=== PATIENT | female | born 1975 | race Caucasian/White ===

== ENCOUNTER 2017-08-07 17:32 | Emergency (ER) | payer MEDICAID ==
[~2017-08-07] VITALS: Ht 152.4 cm; Wt 66.5 kg
[~2017-08-07 17:32] MED LIST: MOTRIN
[2017-08-07 17:43] VITALS: BP 112/73
--- NOTE | 2017-08-07 18:58 | NUR ---
42/ F BIB SON C/O L UPPER ABDOMINAL PAIN X 3 WEEKS & N/V & LEFT PARIETAL HEADACHE X 3 DAYS. SKIN IS PINK/WARM/DRY; AAOX4 WITH EVEN AND STEADY GAIT; LUNGS CLEAR BL; PT DENIES ANY FEVER, CP, SOB, OR COUGH AT THIS TIME; PATIENT STATES PAIN OF 9/10 AT THIS TIME; PATIENT POSITIONED FOR COMFORT; HOB ELEVATED; BEDRAILS UP X2; BED DOWN. ER MADE AWARE OF PT STATUS. Addendum: 08/07/17 at 1911 by [email or web address] PT STS HAS A PERIOD X 2 DAYS.
--- NOTE | 2017-08-07 19:12 | NUR ---
Pt report given to RN CAT. Transfer of care at this time.
--- NOTE | 2017-08-07 19:12 | NUR ---
GAVE REPORT TO DARYL PACE.
--- NOTE | 2017-08-07 19:30 | NUR ---
Dr. Arora evaluating patient at bedside.
[2017-08-07] MEDS ORDERED: ACETAMINOPHEN EXTRA STRENGTH 500 MG TAB PO ONE (19:35)
[2017-08-07] MEDS ORDERED: METOCLOPRAMIDE 10 MG TAB PO ONE (19:35)
[2017-08-07 19:57] LABS: BASOPHILS # (AUTO) 0.2 K/uL (0.00-0.22); BASOPHILS % (AUTO) 3.2 % (0.0-2.0); EOSINOPHILS # (AUTO) 0.2 K/uL (0-0.4); EOSINOPHILS % (AUTO) 2.9 % (0.0-4.0); HEMATOCRIT 39.9 % (36-48); HEMOGLOBIN 13.4 g/dL (12.0-16.0); LYMPHOCYTES # (AUTO) 1.5 K/uL (2.5-16.5); LYMPHOCYTES % (AUTO) 20.9 % (20.5-51.1); MEAN CORPUSCULAR HEMOGLOBIN 29 pg (27-31); MEAN CORPUSCULAR HGB CONC 34 g/dL (33-37); MEAN CORPUSCULAR VOLUME 85 fL (80-94); MONOCYTES # (AUTO) 0.7 K/uL (0.8-1.0); MONOCYTES % (AUTO) 9.1 % (1.7-9.3); NEUTROPHILS # (AUTO) 4.6 K/uL (1.8-7.7); NEUTROPHILS % (AUTO) 63.9 % (42.2-75.2); PLATELET COUNT (AUTO) 290 K/uL (140-450); RED CELL DISTRIBUTION WIDTH 12.4 % (11.6-13.7); WHITE BLOOD COUNT (AUTO) 7.2 K/uL (4.8-10.8)
[2017-08-07 20:02] LABS: APPEARANCE,URINE HAZY (CLEAR); BILIRUBIN,URINE NEGATIVE (NEGATIVE); BLOOD, URINE 3+ (NEGATIVE); COLOR,URINE RED (YELLOW); LEUKOCYTE ESTERASE ,URINE NEGATIVE (NEGATIVE); UGLUCOSE NEGATIVE (NEGATIVE)
[2017-08-07 20:04] LABS: NITRITE, URINE NEGATIVE (NEGATIVE); RBC,URINE TOO NUMEROUS TO COUN /HPF (0-5); WBC,URINE 0-5 (RARE) /HPF (0-5)
[2017-08-07 20:14] LABS: ALBUMIN 3.7 g/dL (3.4-5.0); ANION GAP 6.3 (8-16); CARBON DIOXIDE 31.3 mmol/L (21-32); CREATININE 0.7 mg/dL (0.6-1.3); POTASSIUM 3.6 mmol/L (3.5-5.1); TOTAL BILIRUBIN 0.3 mg/dL (0.0-1.0)
--- NOTE | 2017-08-07 20:55 | NUR ---
Patient discharged with v/s stable. Written and verbal after care instructions given and explained. Patient alert, oriented and verbalized understanding of instructions. Ambulatory with steady gait. All questions addressed prior to discharge. ID band removed. Patient advised to follow up with PMD. Rx of REGLAN 10MG ONE TAB EVERY 12 HOURS PRN, ZANTAC 300MG ONE TAB PO AT BEDTIME, ACETAMINOPHEN 500MG 1-2 TABS EVERY 6 HOURS PRN PAIN given. Patient educated on indication of medication including possible reaction and side effects. Opportunity to ask questions provided and answered.
[2017-08-07 21:02] VITALS: BP 112/60
== END 2017-08-07 20:55 | disposition home or self-care (01) ==
LOC: MED 17:32
DX: G43.909 Migraine, unspecified, not intractable, without status migrainosus (principal); K29.70 Gastritis, unspecified, without bleeding
CPT/HCPCS: 36415; 70450; 80053; 81001; 81025; 83690; 85025; 99285; J8597

== ENCOUNTER 2017-10-21 14:01 | Emergency (ER) | payer MEDICAID ==
[~2017-10-21] VITALS: Ht 152.4 cm; Wt 69.9 kg
[2017-10-21 15:11] VITALS: BP 115/75
--- NOTE | 2017-10-21 18:34 | NUR ---
X-RAY COPLETED----MD AT BEDSIDE---PT IN OVERFLOW 2
[2017-10-21 19:09] VITALS: BP 124/78
== END 2017-10-21 19:08 | disposition home or self-care (01) ==
LOC: MED 14:01
DX: M72.2 Plantar fascial fibromatosis (principal)
CPT/HCPCS: 73630; 99284